=== PATIENT | female | born 1985 | race Hispanic/Latino ===

== ENCOUNTER 2017-08-11 12:51 | Emergency (ER) | payer MEDICAID ==
[2017-08-11 13:56] LABS: BASOPHILS % (AUTO) 0.4 % (0.0-5.0); EOSINOPHILS % (AUTO) 0.5 % (0.0-8.0); HEMATOCRIT 32.8 % (36-48); LYMPHOCYTES % (AUTO) 15.1 % (21.0-51.0); MEAN CORPUSCULAR HEMOGLOBIN 32.2 pg (27.0-33.0); MEAN CORPUSCULAR HGB CONC 34.1 g/dL (32.0-36.0); MEAN CORPUSCULAR VOLUME 94.3 fL (79-99); MONOCYTES % (AUTO) 9.6 % (3.0-13.0); NEUTROPHILS % (AUTO) 74.4 % (40.0-77.0); PLATELET COUNT (AUTO) 298 K/uL (130-400); RED BLOOD CELL COUNT(AUTO) 3.48 MIL/uL (4.00-5.50); RED CELL DISTRIBUTION WIDTH 11.5 % (11.0-15.5); WHITE BLOOD COUNT (AUTO) 5.5 K/uL (4.8-10.8)
[2017-08-11] MEDS ORDERED: DiphenhydrAMINE HCL 50 MG/ML VIAL ONE (13:57)
[2017-08-11] MEDS ORDERED: SODIUM CHLORIDE 0.9% 1000ML 1,000 ML IV ONE (13:57)
[2017-08-11] MEDS ORDERED: PROCHLORPERAZINE EDISYLATE 10 MG/2 ML VIAL ONE (13:57)
[2017-08-11 14:05] LABS: CREATININE 0.7 mg/dL (0.5-1.5); POTASSIUM 3.6 mmol/L (3.5-5.1)
[2017-08-11 14:10] LABS: ALBUMIN 3.2 g/dL (3.5-5.0); BILIRUBIN,TOTAL 0.3 mg/dL (0.2-1.0); TOTAL PROTEIN, SERUM 7.9 g/dL (6.0-8.3)
[2017-08-11 14:26] LABS: APPEARANCE,URINE Clear (CLEAR); BILIRUBIN,URINE Negative (NEGATIVE); COLOR,URINE Yellow (YELLOW); GLUCOSE, URINE (UA) Negative (NEGATIVE); KETONES,URINE Negative (NEGATIVE); LEUKOCYTE ESTERASE ,URINE Negative (NEGATIVE); NITRATE,URINE Negative (NEGATIVE); OCCULT BLOOD,URINE Negative (NEGATIVE); PH,URINE >=9.0 (5.0-8.0); PROTEIN,URINE Negative (NEGATIVE); UROBILINOGEN,URINE 0.2 mg/dL (0.2-1.0)
== END 2017-08-11 16:23 | disposition home or self-care (01) ==
LOC: EDH 12:51
DX: G43.909 Migraine, unspecified, not intractable, without status migrainosus (principal); E07.9 Disorder of thyroid, unspecified
CPT/HCPCS: 36415; 70450; 80053; 81003; 84703; 85025; 96361; 96374; 96375; 99285; J0780; J1200; J7030

== ENCOUNTER 2018-08-31 00:43 | Inpatient (IN) | payer MEDICAID ==
[~2018-08-31] VITALS: Ht 165.1 cm; Wt 89.8 kg
[~2018-08-31 00:43] MED LIST: LEVO88TA7 PO; PREN-154 PO
[2018-08-31] MEDS ORDERED: LACTATED RINGERS 1000ML 1,000 ML IV SCH (01:00)
[2018-08-31 01:22] LABS: APPEARANCE,URINE Clear (CLEAR); BILIRUBIN,URINE Negative (NEGATIVE); COLOR,URINE Yellow (YELLOW); GLUCOSE, URINE (UA) Negative (NEGATIVE); KETONES,URINE Negative (NEGATIVE); LEUKOCYTE ESTERASE ,URINE Moderate (NEGATIVE); NITRATE,URINE Negative (NEGATIVE); OCCULT BLOOD,URINE Negative (NEGATIVE); PH,URINE 7.5 (5.0-8.0); PROTEIN,URINE Negative (NEGATIVE); UROBILINOGEN,URINE 0.2 mg/dL (0.2-1.0)
[2018-08-31 01:34] LABS: BACTERIA,URINE Few /HPF (None Seen); RBC,URINE 0-1 /HPF (0-1)
[2018-08-31] MEDS ORDERED: LACTATED RINGERS 1000ML 1,000 ML IV PRN (01:37)
[2018-08-31] MEDS ORDERED: AMPICILLIN 2GM+NS 100ML 100 ML IV ONE (01:41)
[2018-08-31 01:46] LABS: MEAN CORPUSCULAR HEMOGLOBIN 35.1 pg (27.0-33.0); MEAN CORPUSCULAR HGB CONC 34.4 g/dL (32.0-36.0); MEAN CORPUSCULAR VOLUME 101.9 fL (79-99); NUCLEATED RED BLOOD CELLS 0.2 % (0.0-0.19); PLATELET COUNT (AUTO) 250 K/uL (130-400); RED BLOOD CELL COUNT(AUTO) 3.93 MIL/uL (4.00-5.50); RED CELL DISTRIBUTION WIDTH 13.3 % (11.0-15.5); WHITE BLOOD COUNT (AUTO) 14.8 K/uL (4.8-10.8)
[2018-08-31 01:52] LABS: INR 0.9 (0.85-1.15); PARTIAL THROMBOPLASTIN TIME 26.9 SEC (26.3-35.5); PROTHROMBIN TIME 9.5 SEC (9.6-11.6)
[2018-08-31] MEDS ORDERED: AMPICILLIN 2GM+NS 100ML 100 ML IV SCH (02:00)
[2018-08-31 02:01] LABS: ALBUMIN 2.8 g/dL (3.5-5.0); BILIRUBIN,TOTAL 0.3 mg/dL (0.2-1.0); CREATININE 0.6 mg/dL (0.5-1.5); POTASSIUM 3.8 mmol/L (3.5-5.1); URIC ACID 3.2 mg/dL (2.6-7.2)
[2018-08-31] MEDS ORDERED: MEPERIDINE-PF 50 MG/ML SYG IVP PRN (02:45)
[2018-08-31] MEDS ORDERED: PROMETHAZINE HCL 25 MG/ML 1ML AMPULE IM PRN ×2 (02:45→11:00)
[2018-08-31] MEDS ORDERED: MEPERIDINE-PF 50 MG/ML SYG ONE (02:48)
[2018-08-31 02:58] VITALS: BP 154/91
[2018-08-31 03:06] LABS: AMPHET/METH SCREEN,URINE NEGATIVE (NEGATIVE); BARBITURATE SCREEN, URINE NEGATIVE (NEGATIVE); BENZODIAZEPINES SCREEN,URINE NEGATIVE (NEGATIVE); CANNABINOID SCREEN,URINE NEGATIVE (NEGATIVE); COCAINE SCREEN,URINE NEGATIVE (NEGATIVE); OPIATE SCREEN,URINE NEGATIVE (NEGATIVE); PHENCYCLIDINE SCREEN,URINE NEGATIVE (NEGATIVE)
[2018-08-31] MEDS ORDERED: LACTATED RINGERS 500 ML 500 ML IV PRN (04:00)
[2018-08-31] MEDS ORDERED: ROPIVACAINE 0.2% 100ML VIAL 100 ML EP SCH (04:00)
[2018-08-31] MEDS ORDERED: EPHEDRINE SULFATE 50 MG/ML AMPULE IVP PRN (04:00)
[2018-08-31] MEDS ORDERED: NALOXONE HCL 0.4 MG/1 ML ML IV PRN (04:00)
[2018-08-31] MEDS ORDERED: OXYTOCIN-LR 20 UNITS/1000 ML 1,000 ML IV ONE (04:14)
[2018-08-31] MEDS ORDERED: OXYTOCIN-LR 20 UNITS/1000 ML 1,000 ML IV SCH (05:00)
[2018-08-31] MEDS ORDERED: AMPICILLIN 1GM+NS 50ML 50 ML IV SCH (06:00)
[2018-08-31] MEDS ORDERED: LIDOCAINE HCL 1% 20 ML VIAL ONE (07:22)
[2018-08-31] MEDS ORDERED: CEFAZOLIN SODIUM 1 GM VIAL ONE (07:55)
[2018-08-31] MEDS ORDERED: CEFAZOLIN SODIUM 1 GM VIAL IVP PRN (08:00)
[2018-08-31] MEDS ORDERED: CALDOLOR 800MG+NS 250ML 250 ML IV PRN (08:00)
[2018-08-31] MEDS ORDERED: CEFAZOLIN SODIUM 1 GM VIAL IVP ONE (08:23)
[2018-08-31] MEDS ORDERED: EPHEDRINE SULFATE 50 MG/ML AMPULE ONE (08:29)
[2018-08-31] MEDS ORDERED: ONDANSETRON HCL 4 MG/2 ML VIAL ONE (08:45)
[2018-08-31] MEDS ORDERED: SILVER NITRATE APPLICATOR 1 SWAB TP ONE (09:23)
[2018-08-31] MEDS ORDERED: LIDOCAINE HCL-MPF 1% 2ML VIAL ONE (09:26)
[2018-08-31] MEDS ORDERED: DEXAMETHASONE SOD PHOSPHATE 10MG/ML 1ML VIAL ONE (09:26)
[2018-08-31] MEDS ORDERED: OXYTOCIN 10 UNIT/1ML 10ML VIAL ONE (09:26)
[2018-08-31] MEDS ORDERED: LIDOCAINE PF 2% 5ML ABBOJECT ONE (09:26)
[2018-08-31] MEDS ORDERED: OXYTOCIN-LR 20 UNITS/1000 ML 1,000 ML IV PRN (10:48)
[2018-08-31] MEDS ORDERED: DEXTROSE 5 %-0.45 % NACL 1,000 ML IV PRN (11:00)
[2018-08-31] MEDS ORDERED: MEPERIDINE-PF 75 MG/ML SYG IM PRN (11:00)
[2018-08-31] MEDS ORDERED: SODIUM CHLORIDE 0.9% 10 ML VIAL IVP PRN (11:00)
[2018-08-31 15:41] VITALS: BP 136/72
[2018-08-31] MEDS ORDERED: CALDOLOR 800MG+NS 250ML 250 ML IV ONE (16:49)
[2018-08-31] MEDS ORDERED: CALDOLOR 800MG+NS 250ML 250 ML IV SCH (19:00)
[2018-08-31 20:30] VITALS: BP 126/63
--- NOTE | 2018-08-31 20:30 | NUR ---
alyssa care done. Small lochia rubra noted. Fundus firm at the level of the umbilicus. alyssa pad applied.
--- NOTE | 2018-08-31 20:50 | NUR ---
explained to the pt. about the desired and untoward effects of Demerol. PT. acknowledged understanding and agreed to have the medicine for pain management.
--- NOTE | 2018-08-31 20:55 | NUR ---
Demerol 75 mg. injected IM at the upper outer quadrant of the right gluteus muscle. Pt. tolerated the injection well.
--- NOTE | 2018-08-31 21:42 | NUR ---
pain scale 7 out of 10 . PT. verbalized that she felt the pain when she moved or changed her position.
--- NOTE | 2018-08-31 21:42 | NUR ---
SpO2 99 % at room air.
--- NOTE | 2018-08-31 23:00 | NUR ---
the baby on her right breast. Instructed the mother to burp the baby after feeding and to call me that I can help her put the baby to the open crib for safety while she will rest. PT. acknowledged understanding.
--- NOTE | 2018-08-31 23:30 | NUR ---
pt. verbalized that she will not feel the pain if she is not moving.
--- NOTE | 2018-08-31 23:45 | NUR ---
incentive spirometer 2500 cc volume of air. Pt. tolerated well.
[2018-09-01 00:14] VITALS: BP 126/73
--- NOTE | 2018-09-01 00:29 | NUR ---
Nursery nurse here in the room and assessed the pt's breast. PT. is encouraged to breast feed her baby because of good latch.
--- NOTE | 2018-09-01 02:41 | NUR ---
pt. is sleeping without distress.
[2018-09-01 04:21] VITALS: BP 130/75
--- NOTE | 2018-09-01 06:05 | NUR ---
blood drawn for CBC. Pt. tolerated the procedure well.
[2018-09-01 06:16] LABS: HEMATOCRIT 32.5 % (36-48); MEAN CORPUSCULAR HEMOGLOBIN 35.4 pg (27.0-33.0); MEAN CORPUSCULAR HGB CONC 34.8 g/dL (32.0-36.0); MEAN CORPUSCULAR VOLUME 101.7 fL (79-99); PLATELET COUNT (AUTO) 192 K/uL (130-400); RED BLOOD CELL COUNT(AUTO) 3.19 MIL/uL (4.00-5.50); RED CELL DISTRIBUTION WIDTH 13.4 % (11.0-15.5); WHITE BLOOD COUNT (AUTO) 14.7 K/uL (4.8-10.8)
--- NOTE | 2018-09-01 06:30 | NUR ---
fundus firm at the level of the umbilicus. alyssa care done.
--- NOTE | 2018-09-01 07:20 | NUR ---
SOHA LAMBERT CNM ROUNDING ON PATIENT. NEW ORDERS RECEIVED TO ADVANCE PATIENT, CONTINUE WITH PO MEDS, AMBULATE, AND DISCONTINUE GARZA CATHETER.
--- NOTE | 2018-09-01 07:25 | NUR ---
REPORT GIVEN TO JUSTINO RIOS; COLD HEADER OPERATOR AND NOT TO ELVIA CASTANEDA; RN
--- NOTE | 2018-09-01 07:25 | NUR ---
REPORT GIVEN TO ELVIA CASTANEDA; RN
[2018-09-01 07:40] VITALS: BP 108/71
[2018-09-01] MEDS ORDERED: ACETAMINOPHEN EXTRA STRENGTH 500 MG TABLET PO PRN (08:00)
[2018-09-01] MEDS ORDERED: ACETAMINOPHEN-CODEINE 300/30MG TAB PO PRN (08:00)
[2018-09-01] MEDS ORDERED: DIPH,PERTUSS(ACELL),TET VAC/PF 0.5 ML VIAL IM SCH (08:00)
[2018-09-01] MEDS ORDERED: ACETAMINOPHEN-CODEINE 300/30MG TAB ONE (08:51)
[2018-09-01] MEDS: SIMETHICONE 80 MG TAB.CHEW PO PRN ×2 (08:57→22:05)
[2018-09-01] MEDS: DOCUSATE SODIUM 100 MG CAP PO SCH ×2 (08:57→22:05)
--- NOTE | 2018-09-01 09:04 | NUR ---
COMFORT BABY LATCHED TO LEFT BREAST.
--- NOTE | 2018-09-01 09:40 | NUR ---
GARZA DRESSING REMOVED, INCISION INTACT. GARZA CATHETER REMOVED WITH TIP INTACT. 700 ML OF CLEAR YELLOW URINE EMPTIED FROM BAG. PERICARE GIVEN. ABDOMINAL BINDER APPLIED. ASSISTED PATIENT OOB TO CHAIR AT BEDSIDE. NO C/O DIZZINESS REPORTED. EDUCATED PATIENT ON IMPORTANCE OF USING I.S AND AMBULATING IN HALLWAY. ADVISED PATIENT TO CALL FOR ASSISTANCE WHEN AMBULATING FOR THE FIRST TIME.
[2018-09-01 11:55] VITALS: BP 127/80
[2018-09-01] MEDS: BISACODYL 10 MG SUPP.RECT RC PRN (16:07)
[2018-09-01] MEDS: IBUPROFEN 100 MG/5 ML SUSP UDCUP PO PRN ×2 (16:07→23:14)
[2018-09-01 16:09] VITALS: BP 126/75
[2018-09-01 20:15] VITALS: BP_SYST 120; BP_SYST 136; BP_DIAS 72; BP_DIAS 85
[2018-09-02 00:10] VITALS: BP 124/71
[2018-09-02 04:25] VITALS: BP 119/68
[2018-09-02] MEDS: BISACODYL 10 MG SUPP.RECT RC PRN (04:49)
[2018-09-02 07:30] VITALS: BP 112/70
[2018-09-02 08:17] LABS: HEPATITIS Bs ANTIGEN SCREEN P Negative (Negative)
[2018-09-02] MEDS: DOCUSATE SODIUM 100 MG CAP PO SCH (08:47)
[2018-09-02] MEDS: SIMETHICONE 80 MG TAB.CHEW PO PRN ×2 (08:47→12:35)
[2018-09-02] MEDS: IBUPROFEN 100 MG/5 ML SUSP UDCUP PO PRN (08:48)
[2018-09-02 11:45] VITALS: BP 105/61
--- NOTE | 2018-09-02 13:50 | NUR ---
DISCHARGE PT LEFT UNIT VIA WHEELCHAIR, WITH BABY IN ARMS, ACCOMPANIED BY FAMILY. DENIED PAIN AND HAD NO COMPLAINTS. BABY STRAPPED IN CAR SEAT. PT AND BABY TRANSPORTED BY PERSONAL VEHICLE.
== END 2018-09-02 13:50 | disposition home or self-care (01) | DRG 540 ==
LOC: EDH 00:43 → LDH 00:57 → OBSVTOIN 00:57 → WSH 16:55
PROVIDERS: ADMIT Obstetrics & Gynecology; ATTEND Obstetrics & Gynecology
PROC: 10D00Z1 Extraction of Products of Conception, Low, Open Approach (ICD-10-PCS; principal; 2018-08-31 08:20)
PROC: 3E0234Z Introduction of Serum, Toxoid and Vaccine into Muscle, Percutaneous Approach (ICD-10-PCS; 2018-09-01)
DX: O33.9 Maternal care for disproportion, unspecified (principal); O62.2 Other uterine inertia; Z37.0 Single live birth; O76 Abnormality in fetal heart rate and rhythm complicating labor and delivery; O77.0 Labor and delivery complicated by meconium in amniotic fluid; Z3A.37 37 weeks gestation of pregnancy; Z23 Encounter for immunization
CPT/HCPCS: 36415; 59510; 76805; 80053; 80305; 81001; 84550; 85027; 85384; 85610; 85730; 86592; 86850; 86900; 86901; 87340; 90715; A4314; A4344; A4450; A4606; G0378; J0290; J0690; J1100; J1741; J2001; J2175; J2405; J2590; J3490; J7120

== ENCOUNTER 2019-05-26 05:36 | Observation (INO) | payer MEDICAID ==
[2019-05-26 06:34] LABS: BASOPHILS % (AUTO) 0.3 % (0.0-5.0); EOSINOPHILS % (AUTO) 0.3 % (0.0-8.0); HEMATOCRIT 40.8 % (36-48); LYMPHOCYTES % (AUTO) 7.1 % (21.0-51.0); MEAN CORPUSCULAR HEMOGLOBIN 32.5 pg (27.0-33.0); MEAN CORPUSCULAR HGB CONC 33.6 g/dL (32.0-36.0); MEAN CORPUSCULAR VOLUME 96.7 fL (79-99); MONOCYTES % (AUTO) 3.9 % (3.0-13.0); NEUTROPHILS % (AUTO) 87.9 % (40.0-77.0); PLATELET COUNT (AUTO) 189 K/uL (130-400); RED BLOOD CELL COUNT(AUTO) 4.22 MIL/uL (4.00-5.50); RED CELL DISTRIBUTION WIDTH 11.9 % (11.0-15.5)
[2019-05-26 06:49] LABS: CREATININE 0.7 mg/dL (0.5-1.5); POTASSIUM 3.5 mmol/L (3.5-5.1)
[2019-05-26] MEDS ORDERED: OXYTOCIN 10 USP UNITS/ML 20 UNIT in LACTATED RINGERS 1000ML 1,000 ML IV SCH (06:50)
[2019-05-26 07:12] LABS: INR 0.98 (0.85-1.15); PARTIAL THROMBOPLASTIN TIME 23.6 SEC (26.3-35.5); PROTHROMBIN TIME 10.3 SEC (9.6-11.6)
[2019-05-26] MEDS ORDERED: OXYTOCIN-LR 20 UNITS/1000 ML 1,000 ML IV ONE ×2 (07:29→08:57)
[2019-05-26] MEDS ORDERED: LIDOCAINE PF 2% 5ML ABBOJECT ONE (08:07)
[2019-05-26] MEDS ORDERED: FENTANYL CITRATE PF 50 MCG/1 ML 2ML VIAL ONE (08:08)
[2019-05-26] MEDS ORDERED: ONDANSETRON HCL 4 MG/2 ML VIAL ONE (08:08)
[2019-05-26] MEDS ORDERED: MIDAZOLAM HCL 1 MG/ML 2ML VIAL ONE (08:08)
[2019-05-26] MEDS ORDERED: PROPOFOL 10 MG/ML 20ML VIAL IV ONE (08:08)
[2019-05-26 09:25] VITALS: BP 111/72
[2019-05-26 09:40] VITALS: BP 118/77
[2019-05-26 09:55] VITALS: BP 96/54
[2019-05-26 10:10] VITALS: BP 94/50
[2019-05-26 10:55] VITALS: BP 104/72
[2019-05-26 11:25] VITALS: BP 118/63
--- NOTE | 2019-05-26 12:05 | NUR ---
DISCHARGE PT LEFT UNIT VIA WHEELCHAIR, ACCOMPANIED BY FAMILY. DENIED PAIN AND HAD NO COMPLAINTS. TRANSPORTED BY PERSONAL VEHICLE.
== END 2019-05-26 12:05 | disposition home or self-care (01) ==
LOC: EDH 05:36 → INTOOBSV 05:37 → LDH 05:37 → WSH 09:15
PROVIDERS: ADMIT Obstetrics & Gynecology; ATTEND Obstetrics & Gynecology
DX: O03.4 Incomplete spontaneous abortion without complication (principal); O02.0 Blighted ovum and nonhydatidiform mole; Z87.59 Personal history of other complications of pregnancy, childbirth and the puerperium
CPT/HCPCS: 36415; 59812; 76801; 80048; 84702; 85025; 85610; 85730; 86850; 86900; 86901; 88305; 99284; G0378 ×4; J2001; J2250; J2405; J2590 ×2; J2704; J3010; J7120

== ENCOUNTER 2022-05-09 16:05 | Observation (INO) | payer BC, MEDICAID ==
[~2022-05-09] VITALS: Ht 162.6 cm; Wt 87.1 kg
[2022-05-09 16:13] VITALS: BP 150/83
[2022-05-09] MEDS ORDERED: LACTATED RINGERS 1000ML IV SCH (17:30)
[2022-05-09] MEDS ORDERED: LACTATED RINGERS 1000ML 1,000 ML IV PRN (18:00)
[2022-05-09 18:05] LABS: BASOPHILS % (AUTO) 0.7 % (0.0-5.0); EOSINOPHILS % (AUTO) 0.5 % (0.0-8.0); HEMATOCRIT 38.5 % (36-48); LYMPHOCYTES % (AUTO) 9.3 % (21.0-51.0); MEAN CORPUSCULAR HEMOGLOBIN 33.8 pg (27.0-33.0); MEAN CORPUSCULAR HGB CONC 33.8 g/dL (32.0-36.0); MONOCYTES % (AUTO) 6.7 % (3.0-13.0); NEUTROPHILS % (AUTO) 78.4 % (40.0-77.0); PLATELET COUNT (AUTO) 219 K/uL (130-400); RED BLOOD CELL COUNT(AUTO) 3.85 MIL/uL (4.00-5.50); WHITE BLOOD COUNT (AUTO) 10.3 K/uL (4.8-10.8)
[2022-05-09 18:20] LABS: CREATININE 0.5 mg/dL (0.5-1.5); POTASSIUM 3.8 mmol/L (3.5-5.1)
[2022-05-09 18:24] LABS: TOTAL PROTEIN, SERUM 7.6 g/dL (6.0-8.3); URIC ACID 3.8 mg/dL (2.6-7.2)
[2022-05-09 18:26] LABS: INR 0.93 (0.85-1.15); PROTHROMBIN TIME 9.8 SEC (9.6-11.6)
[2022-05-09 18:28] LABS: PARTIAL THROMBOPLASTIN TIME 27.9 SEC (26.3-35.5)
[2022-05-09 18:31] LABS: APPEARANCE,URINE CLEAR (CLEAR); BILIRUBIN,URINE NEGATIVE (NEGATIVE); COLOR,URINE LIGHT-YELLOW (YELLOW); GLUCOSE, URINE (UA) NEGATIVE (NEGATIVE); KETONES,URINE 40 mg/dL (NEGATIVE); LEUKOCYTE ESTERASE ,URINE NEGATIVE Leu/uL (NEGATIVE); NITRATE,URINE NEGATIVE (NEGATIVE); OCCULT BLOOD,URINE NEGATIVE (NEGATIVE); PH,URINE 6.5 (5.0-8.0); PROTEIN,URINE NEGATIVE (NEGATIVE); UROBILINOGEN,URINE 0.2 mg/dL (0.2-1.0)
[2022-05-09 18:44] LABS: AMPHET/METH SCREEN,URINE NEGATIVE (NEGATIVE); BARBITURATE SCREEN, URINE NEGATIVE (NEGATIVE); BENZODIAZEPINES SCREEN,URINE NEGATIVE (NEGATIVE); CANNABINOID SCREEN,URINE NEGATIVE (NEGATIVE); COCAINE SCREEN,URINE NEGATIVE (NEGATIVE); OPIATE SCREEN,URINE NEGATIVE (NEGATIVE); PHENCYCLIDINE SCREEN,URINE NEGATIVE (NEGATIVE)
[2022-05-09 18:51] LABS: BACTERIA,URINE FEW /HPF (None Seen); MUCUS,URINE RARE LPF (None Seen); SQUAMOUS EPITHELIAL CELL,UR RARE /HPF (0-2)
[2022-05-09] MEDS: NIFEDIPINE 10 MG CAP PO PRN ×3 (19:46→20:48)
[2022-05-10 10:59] LABS: RAPID PLASMA REAGIN NONREACTIVE (NONREACTIVE)
== END 2022-05-10 07:00 | disposition home or self-care (01) ==
LOC: EDH 16:05 → LDH 16:28
PROVIDERS: ADMIT Obstetrics & Gynecology; ATTEND Obstetrics & Gynecology
DX: O26.893 Other specified pregnancy related conditions, third trimester (principal); R10.30 Lower abdominal pain, unspecified; O30.003 Twin pregnancy, unspecified number of placenta and unspecified number of amniotic sacs, third trimester; Z3A.36 36 weeks gestation of pregnancy; Z98.891 History of uterine scar from previous surgery; Z79.899 Other long term (current) drug therapy
CPT/HCPCS: 96361 ×4; 59025 ×2; 96360; 84550; 80053; 80305; 85025; 85384; 85610; 85730; 86592; 86850; 86900; 86901; 87340; 86701; 87390; 81001; 36415; G0379; G0378 ×15; J7120 ×3

== ENCOUNTER → 2023-07-26 | Outpatient (CLI) | payer BC, MEDICAID | END | disposition home or self-care (01) | LOC: RAH 10:06 | PROVIDERS: ATTEND Obstetrics & Gynecology | DX: Z12.31 Encounter for screening mammogram for malignant neoplasm of breast (principal) | CPT/HCPCS: 77067 ==